=== PATIENT | male | born 1985 | race Caucasian/White ===

== ENCOUNTER 2018-06-23 22:33 | Emergency (ER) | payer OTHER ==
[2018-06-23 22:47] VITALS: RESP 18
[2018-06-23] MEDS ORDERED: DIPH,PERTUS(ACELL)TETVAC-LF 0.5 ML VIAL IM ONE (23:50)
[2018-06-23] MEDS ORDERED: IBUPROFEN 800 MG TAB PO STA (23:51)
--- NOTE | 2018-06-23 23:53 | ED ---
General Adult HPI - General Chief complaint: Extremity Problem,Nontraumatic Stated complaint: Foot pain Source: patient Mode of arrival: ambulatory Limitations: no limitations - Related Data Home Medications Medication Instructions Recorded Confirmed No Known Home Medications 06/23/18 06/23/18 Allergies Allergy/AdvReac Type Severity Reaction Status Date / Time No Known Allergies Allergy Verified 06/23/18 23:18 Review of Systems ROS Statement: Those systems with pertinent positive or pertinent negative responses have been documented in the HPI. ROS Other: All systems not noted in ROS Statement are negative. Past Medical History Past Medical History: No Reported History History of Any Multi-Drug Resistant Organisms: None Reported Past Surgical History: No Surgical Hx Reported Past Psychological History: Depression Smoking Status: Current every day smoker Past Alcohol Use History: Daily Past Drug Use History: Marijuana General Exam Limitations: no limitations Course Vital Signs 06/23/18 22:42 Temperature 97.9 F Pulse Rate 89 Respiratory 18 Rate Blood Pressure 143/89 O2 Sat by Pulse 99 Oximetry Medical Decision Making - Medical Decision Making Dictation was produced using [employer] dictation software. please excuse any grammatical, word or spelling errors. Chief Complaint: 33-year-old homeless male presents with bilateral foot pain. History of Present Illness: Patient is a 33-year-old male presents with bilateral foot pain. Patient states he got new shoes approximately 3 weeks ago. Patient is homeless. He states he hasn't taken his shoes off in several weeks. Patient states he has bilateral pain to his feet. Denies any inciting injury. The ROS documented in this emergency department record has been reviewed and confirmed by me. Those systems with pertinent positive or negative responses have been documented in the HPI. All other systems are other negative and/or noncontributory. PHYSICAL EXAM: General Impression: Alert and oriented x3, not in acute distress HEENT: Normocephalic atraumatic, extra-ocular movements intact, pupils equal and reactive to light bilaterally, mucous membranes moist. Cardiovascular: Heart regular rate and rhythm, S1&S2 audible, no murmurs, rubs or gallops Chest: Lungs clear to auscultation bilaterally, no rhonchi, no wheeze, no rales Abdomen: Bowel sounds present, abdomen soft, non-tender, non-distended, no organomegaly Musculoskeletal: Pulses present and equal in all extremities, no peripheral edema Motor: Power 5/5 bilaterally, no focal deficits noted Neurological: CN II-XII grossly intact, no focal motor or sensory deficits noted Skin: Erythema and abrasion to the lower part of the foot on the plantar surface. Psych: Normal affect and mood ED course: 33-year-old male presents with bilateral foot pain. Vital signs upon arrival are within acceptable limits. Patient reports a homeless. Bilateral foot examination shows findings to suggest mild trench foot. Tetanus updated. Patient counseled on appropriate management of trench foot. Still to air dry his feet daily. Patient given socks. Patient clear for discharge. Disposition Clinical Impression: Trench foot Disposition: HOME SELF-CARE Condition: Good Instructions: Foot Sprain (ED) Is patient prescribed a controlled substance at d/c from ED?: No Referrals: None,Stated [Primary Care Provider] - 1-2 days Time of Disposition: 00:39
[2018-06-24 03:44] VITALS: BP 137/89; PULSE 78; TEMP 98.5
== END 2018-06-24 03:44 | disposition home or self-care (01) ==
LOC: EC 22:33
DX: T69.022A Immersion foot, left foot, initial encounter (principal); T69.021A Immersion foot, right foot, initial encounter; S90.812A Abrasion, left foot, initial encounter; S90.811A Abrasion, right foot, initial encounter; F17.200 Nicotine dependence, unspecified, uncomplicated; Z59.0 Homelessness; Z23 Encounter for immunization; X58.XXXA Exposure to other specified factors, initial encounter
CPT/HCPCS: 90471; 90715; 99283

== ENCOUNTER 2023-04-16 15:03 | Emergency (ER) | payer OTHER ==
[2023-04-16 15:44] VITALS: TEMP 97.4
--- NOTE | 2023-04-16 17:21 | ED ---
General Adult HPI - General Chief complaint: Abdominal Pain Stated complaint: Poss hernia Time Seen by Provider: 04/16/23 15:30 Source: patient, RN notes reviewed Mode of arrival: ambulatory Limitations: no limitations - History of Present Illness Initial comments: 37-year-old male presents emergency department chief complaint of left groin pain. He states that he is concerned he has a hernia. He states that he feels a bulge when he exerts himself. He states that he is able to push it back in when he lays down in bed. He states that he notices from 2 weeks ago. He denies any changes of his bowel habits. He denies urinary frequency, dysuria. - Related Data Home Medications Medication Instructions Recorded Confirmed No Known Home Medications 06/23/18 06/23/18 Allergies Allergy/AdvReac Type Severity Reaction Status Date / Time No Known Allergies Allergy Verified 04/16/23 15:25 Review of Systems ROS Statement: Those systems with pertinent positive or pertinent negative responses have been documented in the HPI. ROS Other: All systems not noted in ROS Statement are negative. Past Medical History Past Medical History: Hypertension History of Any Multi-Drug Resistant Organisms: None Reported Past Surgical History: No Surgical Hx Reported Past Psychological History: Depression Smoking Status: Current every day smoker Past Alcohol Use History: Daily, Occasional Past Drug Use History: Marijuana General Exam Limitations: no limitations General appearance: alert, in no apparent distress Course Vital Signs 04/16/23 04/16/23 15:22 18:06 Temperature 97.4 F L Pulse Rate 90 89 Respiratory 16 18 Rate Blood Pressure 136/81 136/90 O2 Sat by Pulse 97 96 Oximetry Medical Decision Making - Medical Decision Making Was pt. sent in by a medical professional or institution (, PA, PRESERVATIVE FILLER MACHINE OPERATOR, urgent care, hospital, or half-way...) When possible be specific @ -No Did you speak to anyone other than the patient for history (EMS, parent, family, police, friend...)? What history was obtained from this source @ -No Did you review nursing and triage notes (agree or disagree)? Why? @ -I reviewed and agree with nursing and triage notes Were old charts reviewed (outside hosp., previous admission, EMS record, old EKG, old radiological studies, urgent care reports/EKG's, half-way records)? Report findings @ -No old charts were reviewed Differential Diagnosis (chest pain, altered mental status, abdominal pain women, abdominal pain men, vaginal bleeding, weakness, fever, dyspnea, syncope, headache, dizziness, GI bleed, back pain, seizure, CVA, palpatations, mental health, musculoskeletal)? @ -not applicable EKG interpreted by me (3pts min.). @ -None X-rays interpreted by me (1pt min.). @ -None done CT interpreted by me (1pt min.). @ -None done U/S interpreted by me (1pt. min.). @ -Left-sided groin ultrasound 2.5 x 2.0 x 1.6 cm hypoechoic mass which presumably represents herniation of fat and/or bowel loop What testing was considered but not performed or refused? (CT, X-rays, U/S, labs)? Why? @ -None What meds were considered but not given or refused? Why? @ -None Did you discuss the management of the patient with other professionals (professionals i.e. , PA, PRESERVATIVE FILLER MACHINE OPERATOR, lab, RT, psych nurse, social welfare clerk, information and data architect analyst, teacher, public safety officer, case technician)? Give summary @ -No Was smoking cessation discussed for >3mins.? @ -No Was critical care preformed (if so, how long)? @ -No Were there social determinants of health that impacted care today? How? (Homeles sness, low income, unemployed, alcoholism, drug addiction, transportation, low edu. Level, literacy, decrease access to med. care, fci, rehab)? @ -No Was there de-escalation of care discussed even if they declined (Discuss DNR or withdrawal of care, Hospice)? DNR status @ -No What co-morbidities impacted this encounter? (DM, HTN, Smoking, COPD, CAD, Cancer, CVA, ARF, Chemo, Hep., AIDS, mental health diagnosis, sleep apnea, morbid obesity)? @ -None Was patient admitted / discharged? Hospital course, mention meds given and route, prescriptions, significant lab abnormalities, going to OR and other pertinent info. @ -Discharged. Patient presented to emergency department chief complaint of left groin bulge. There is a palpable mass in this region that is easily reduced with supine positioning. Ultrasound obtained to operate cyst. Patient is not having any changes in his bowel habits. He states that the pain is mild. Patient will follow up on outpatient basis with general surgery. Return precautions discussed. Patient stable at time of discharge. Case discussed with Dr. Corcoran Undiagnosed new problem with uncertain prognosis? @ -No Drug Therapy requiring intensive monitoring for toxicity (Heparin, Nitro, Insulin, Cardizem)? @ -No Were any procedures done? @ -No Diagnosis/symptom? @ -groin hernia Acute, or Chronic, or Acute on Chronic? @ -acute Uncomplicated (without systemic symptoms) or Complicated (systemic symptoms)? @ -uncomplicated Side effects of treatment? @ -No Exacerbation, Progression, or Severe Exacerbation? @ -No Poses a threat to life or bodily function? How? (Chest pain, [place], [place], pneumonia, PE, COPD, DKA, ARF, appy, cholecystitis, CVA, Diverticulitis, Homicidal, Suicidal, threat to staff... and all critical care pts) @ -No Disposition Clinical Impression: Hernia Disposition: HOME SELF-CARE Condition: Stable Instructions (If sedation given, give patient instructions): Inguinal Hernia (ED) Additional Instructions: Please follow up with surgery. Return to the emergency department for new or worsening symptoms. Is patient prescribed a controlled substance at d/c from ED?: No Referrals: None,Stated [Primary Care Provider] - 1-2 days Karlo Muir MD [Medical Doctor] - 1-2 days
--- NOTE | 2023-04-16 17:25 | US ---
EXAMINATION TYPE: US groin LT DATE OF EXAM: 04/16/2023 COMPARISON: NONE CLINICAL INDICATION: Male, 37 years old with history of pain, bulge x 2 weeks; TECHNIQUE: Scanned palpable FINDINGS: High-resolution multiplanar lo scale imaging was obtained over the area of interest. The palpable finding correlates to a 2.5 x 2.0 x 1.6 cm hypoechoic mass which appears heterogeneous i n its echotexture. The mass is located medial to the external iliac vasculature and presumably repres ents herniation of fat and/or bowel loop. IMPRESSION: Sonographic correlate for the palpable finding, as discussed.
[2023-04-16 18:09] VITALS: BP 136/90; PULSE 89; RESP 18
== END 2023-04-16 18:33 | disposition home or self-care (01) ==
LOC: EC 15:03
DX: K40.90 Unilateral inguinal hernia, without obstruction or gangrene, not specified as recurrent (principal); I10 Essential (primary) hypertension; F17.200 Nicotine dependence, unspecified, uncomplicated; F12.90 Cannabis use, unspecified, uncomplicated
CPT/HCPCS: 99284